=== PATIENT | female | born 1985 | race Caucasian/White ===

== ENCOUNTER 2024-10-04 08:41 | Emergency (ER) | payer OTHER, BC ==
[2024-10-04 08:59] VITALS: BP 145/95; PULSE 94; RESP 17; TEMP 98.4; BMI 28.1
[2024-10-04] MEDS ORDERED: ONDANSETRON 4 MG TABLET PO ONE (09:24)
[2024-10-04] MEDS ORDERED: ACETAMINOPHEN 500 MG TABLET (FP) ONE (09:24)
[2024-10-04] MEDS: ACETAMINOPHEN 500 MG TABLET (FP) PO ONE (09:28)
[2024-10-04] MEDS: ONDANSETRON 4 MG TABLET PO ONE (09:29)
== END 2024-10-04 12:15 | disposition home or self-care (01) ==
LOC: JERFT 08:41 → JER 08:41 → JERFT 12:15
DX: R51.9 Headache, unspecified (principal); M54.2 Cervicalgia; R11.0 Nausea; V47.5XXA Car driver injured in collision with fixed or stationary object in traffic accident, initial encounter; Y92.410 Unspecified street and highway as the place of occurrence of the external cause
CPT/HCPCS: 70450-TC; 72125-TC; 99284-25